=== PATIENT | female | born 1965 | race African-American/Black ===

== ENCOUNTER 2021-07-02 07:58 | Emergency (ER) | payer MEDICAID ==
[~2021-07-02] VITALS: Ht 167.6 cm; Wt 76.0 kg
[~2021-07-02 07:58] MED LIST: AMLO5TAB4 PO; ASPI-1160 PO; BENA10TA74 PO; METF-414 PO
[2021-07-02] MEDS ORDERED: ATOR10TA MT (08:06)
[2021-07-02 08:45] LABS: BASOPHILS % 0.6 % (0.0-2.0); EOSINOPHILS % 4.9 % (0.0-5.0); HEMATOCRIT. 42.3 % (36.0-48.0); LYMPHOCYTES % 39.7 % (20.0-50.0); MEAN CORPUSCULAR HEMOGLOBIN 33.6 pg (28.0-32.0); MEAN CORPUSCULAR VOLUME 101.7 fL (81.0-99.0); MEAN PLATELET VOLUME 9.8 fl (7.4-10.4); MONOCYTES % 7.7 % (2.0-8.0); NEUTROPHILS % 47.1 % (40.0-76.0); PLATELET 247 x1000/uL (130-400); RED BLOOD CELL COUNT 4.16 mill/uL (4.2-5.4); RED CELL DISTRIBUTION WIDTH 13.5 % (11.6-14.6)
[2021-07-02 08:52] LABS: CHLORIDE 106 mEq/L (98-107)
[2021-07-02] MEDS ORDERED: OMEP20TA2 PO (09:13)
[2021-07-02 09:36] VITALS: BP 122/75
== END 2021-07-02 09:37 | disposition home or self-care (01) ==
LOC: ER 08:31
DX: K21.9 Gastro-esophageal reflux disease without esophagitis (principal); I10 Essential (primary) hypertension; E11.9 Type 2 diabetes mellitus without complications; Z88.0 Allergy status to penicillin; Z79.899 Other long term (current) drug therapy; Z79.82 Long term (current) use of aspirin; Z79.84 Long term (current) use of oral hypoglycemic drugs
CPT/HCPCS: 36415; 71045; 80053; 83880; 84484; 85025; 93005; 99285

== ENCOUNTER 2021-10-23 07:33 | Emergency (ER) | payer MEDICAID ==
[~2021-10-23] VITALS: Ht 170.2 cm; Wt 79.0 kg
[~2021-10-23 07:33] MED LIST changes: +ATOR10TA MT; +OMEP20TA2 PO
[2021-10-23 09:08] LABS: BASOPHILS % 1.2 % (0.0-2.0); EOSINOPHILS % 9.3 % (0.0-5.0); HEMATOCRIT. 39.3 % (36.0-48.0); HEMOGLOBIN. 12.8 g/dL (12.0-16.0); LYMPHOCYTES % 42.4 % (20.0-50.0); MEAN CORPUSCULAR HEMOGLOBIN 32.9 pg (28.0-32.0); MEAN CORPUSCULAR VOLUME 100.7 fL (81.0-99.0); MEAN PLATELET VOLUME 9.9 fl (7.4-10.4); MONOCYTES % 5.8 % (2.0-8.0); NEUTROPHILS % 41.3 % (40.0-76.0); PLATELET 286 x1000/uL (130-400); RED CELL DISTRIBUTION WIDTH 14.7 % (11.6-14.6)
[2021-10-23 09:12] LABS: CHLORIDE 113 mEq/L (98-107)
[2021-10-23] MEDS ORDERED: ALBUTEROL (0.083%) 2.5MG/3ML NEB HHN STA (09:24)
[2021-10-23] MEDS ORDERED: GUAI120017 PO (10:02)
[2021-10-23] MEDS ORDERED: B50 PO (10:02)
[2021-10-23] MEDS ORDERED: ALBU6.7H9 INH (10:12)
[2021-10-23 10:41] VITALS: BP 169/98
== END 2021-10-23 11:50 | disposition home or self-care (01) ==
LOC: ER 07:33
DX: B34.9 Viral infection, unspecified (principal); R06.02 Shortness of breath; I10 Essential (primary) hypertension; E11.9 Type 2 diabetes mellitus without complications; Z20.822 Contact with and (suspected) exposure to COVID-19
CPT/HCPCS: 36415; 71045; 80053; 85025; 93005; 94640; 99285; C9803; U0003; U0005; Z7610

== ENCOUNTER 2022-09-04 21:24 | Emergency (ER) | payer MEDICAID ==
[~2022-09-04] VITALS: Ht 167.6 cm; Wt 90.0 kg
[~2022-09-04 21:24] MED LIST changes: +ALBU6.7H3 INH; +B50 PO; +GUAI120017 PO; -OMEP20TA2 PO; +OMEP20TA23 PO
[2022-09-04 22:25] VITALS: BP 165/85
[2022-09-04] MEDS ORDERED: MAGNESIUM/ALUMINUM HYDROXIDE/SIMETHICONE 30ML UDC PO ONE (23:00)
== END 2022-09-04 23:20 | disposition home or self-care (01) ==
LOC: ER 21:55
DX: E11.649 Type 2 diabetes mellitus with hypoglycemia without coma (principal); Z88.0 Allergy status to penicillin; Z79.899 Other long term (current) drug therapy
CPT/HCPCS: 82962; 99283